=== PATIENT | female | born 1970 | race Caucasian/White ===

== ENCOUNTER 2020-09-24 18:19 | Emergency (ER) | payer SELFPAY ==
[2020-09-24] MEDS ORDERED: Ketorolac Tromethamine 30 MG/ML VIAL ONE (19:00)
[2020-09-24 19:31] LABS: #Lymphocytes 0.9 thou/uL (1.20-3.40); #Monocytes 0.3 thou/uL (0.11-0.59); #Neutrophils 1.5 thou/uL (1.40-6.50); %Basophils 1.5 % (0.0-1.0); %Eosinophils 0.9 % (0.0-10.0); %Lymphocytes 33.5 % (21.0-51.0); %Monocytes 10.2 % (0.0-10.0); %Neutrophils 53.9 % (42.0-75.0); Hemoglobin 14.2 g/dL (12.0-16.0); Mean Corpuscular HGB CONC 34.6 g/dL (32.0-36.0); Mean Corpuscular Hemoglobin 31.5 pg (27.0-31.0); Mean Corpuscular Volume 91.1 fL (78.0-98.0); Mean Platelet Volume 8.2 fL (7.4-10.4); Platelet Count 133 thou/uL (130-400); RBC Distribution Width 11.2 % (11.5-14.5); Red Blood Cell (RBC) Count 4.49 mill/uL (4.20-5.40); White Blood Cell (WBC) Count 2.8 thou/uL (4.8-10.8)
[2020-09-24 19:32] LABS: Bilirubin Negative (Negative); Blood, Urine Negative (Negative); Clarity Clear (Clear); Glucose, Urine (Dipstick) Greater than 1000 mg/dL (Negative); Ketone, Urine Negative (Negative); Leukocyte Negative Leu/uL (Negative); Nitrite Negative (Negative); Protein, Urine (Dipstick) Negative (Neg-Trace); Specific Gravity, Urine 1.013 (1.002-1.036); Urobilinogen Normal mg/dL (Less than 2); pH, Urine 5.5 (5.0-9.0)
[2020-09-24 19:49] LABS: ALT (SGPT) 25 U/L (8-55); AST (SGOT) 19 U/L (5-34); Albumin 3.9 g/dL (3.5-5.0); Alkaline Phosphatase 75 U/L (40-110); Anion Gap 16 mmol/L (10-20); BUN (Urea Nitrogen) 7 mg/dL (7.0-18.7); Bilirubin, Total 0.2 mg/dL (0.2-1.2); Calc. Creatinine Clearance 0 mL/min (70-130); Calcium 8.6 mg/dL (7.8-10.44); Carbon Dioxide 23 mmol/L (22-29); Chloride 100 mmol/L (98-107); Estimated GFR-MDRD 71; Globulin 3.2 g/dL (2.4-3.5); Glucose 363 mg/dL (70-105); Potassium 3.7 mmol/L (3.5-5.1); Protein, Total 7.1 g/dL (6.0-8.3); Sodium 135 mmol/L (136-145)
== END 2020-09-24 21:28 | disposition home or self-care (01) ==
LOC: ERS 18:19
DX: U07.1 COVID-19 (principal); M54.9 Dorsalgia, unspecified; E11.9 Type 2 diabetes mellitus without complications; E78.00 Pure hypercholesterolemia, unspecified; I10 Essential (primary) hypertension; E05.00 Thyrotoxicosis with diffuse goiter without thyrotoxic crisis or storm
CPT/HCPCS: 36416; 80053; 81003; 85025; 87086; 96374; J1885

== ENCOUNTER 2020-09-28 15:41 | Inpatient (IN) | payer SELFPAY ==
[2020-09-28 16:21] LABS: Bilirubin Negative (Negative); Blood, Urine Negative (Negative); Clarity Clear (Clear); Glucose, Urine (Dipstick) Greater than 1000 mg/dL (Negative); Ketone, Urine Trace mg/dL (Negative); Leukocyte Negative Leu/uL (Negative); Nitrite Negative (Negative); Protein, Urine (Dipstick) Negative (Neg-Trace); Specific Gravity, Urine 1.009 (1.002-1.036); Urobilinogen Normal mg/dL (Less than 2)
[2020-09-28 17:20] LABS: #Lymphocytes 1.1 thou/uL (1.20-3.40); #Monocytes 0.3 thou/uL (0.11-0.59); #Neutrophils 2.9 thou/uL (1.40-6.50); %Basophils 0.4 % (0.0-1.0); %Eosinophils 0.1 % (0.0-10.0); %Lymphocytes 26.3 % (21.0-51.0); %Monocytes 6.1 % (0.0-10.0); %Neutrophils 67.1 % (42.0-75.0); Hemoglobin 13.9 g/dL (12.0-16.0); Mean Corpuscular HGB CONC 32.2 g/dL (32.0-36.0); Mean Corpuscular Hemoglobin 29.1 pg (27.0-31.0); Mean Corpuscular Volume 90.5 fL (78.0-98.0); Mean Platelet Volume 8.4 fL (7.4-10.4); Platelet Count 153 thou/uL (130-400); RBC Distribution Width 11.1 % (11.5-14.5); Red Blood Cell (RBC) Count 4.79 mill/uL (4.20-5.40); White Blood Cell (WBC) Count 4.3 thou/uL (4.8-10.8)
--- NOTE | 2020-09-28 17:20 | RAD ---
PORTABLE CHEST: 09/28/20 HISTORY: Chest pain, COVID positive. COMPARISON: No recent comparison. FINDINGS: Hazy infiltrate in the peripheral right lower lung suggesting ground glass infiltrates. Probable subt le infiltrates in the left lower lung as well. Upper lungs appear clear. Heart and mediastinum unrema rkable. IMPRESSION: Evidence of hazy ground glass type infiltrates in the lower lung nelson suggesting COVID pneumonia. POS: [facility]
[2020-09-28 17:36] LABS: Anion Gap 14 mmol/L (10-20); BUN (Urea Nitrogen) 6 mg/dL (7.0-18.7); Calc. Creatinine Clearance 0 mL/min (70-130); Carbon Dioxide 27 mmol/L (22-29); Chloride 99 mmol/L (98-107); Estimated GFR-MDRD 82; Glucose 242 mg/dL (70-105); Lipase 52 U/L (8-78); Potassium 3.7 mmol/L (3.5-5.1); Sodium 136 mmol/L (136-145)
[2020-09-28] MEDS ORDERED: Ondansetron PF 4 MG/2 ML Vial ONE (17:51)
[2020-09-28] MEDS ORDERED: Dexamethasone 10 MG/ML VIAL ONE (17:55)
[2020-09-28] MEDS ORDERED: Azithromycin 500 MG in Sodium Chloride 0.9% 250 ML 250 ML IVPB SCH (18:15)
[2020-09-28 18:38] LABS: INR-International Normal Ratio 0.9; Prothrombin Time 11.8 sec (12.0-14.7)
[2020-09-28 18:41] LABS: PTT 19.7 sec (22.9-36.1)
--- NOTE | 2020-09-28 18:58 | PDOC.HHP ---
Hospitalist HPI - History of Present Illness flu-like symptoms History of Present Illness: PCP: Dr. Galeana The patient is a 50-year-old female with a past medical history significant for DM 2 ([id number]) and Graves' disease that presents to the emergency department for the above complaint. The patient reports being diagnosed with Covid 19 infection last which was approximately 6 days ago. The patient reports that she has had back pain, nausea with anorexia since her diagnosis. However, this morning her symptoms had worsened. She reports primarily lower back pain, sometimes worse on the left side, described as intermittent stabbing, exacerbated and relieved by nothing. She reports some associated nausea, denies vomiting. She went to an [facility], however, she waited for approximately 3 hours and decided to come to the emergency department for further evaluation. She has had intermittent diarrhea, denies any hematochezia/melena. She denies any dysuria or hematuria. She reports having intermittent fevers over the past week, however, has not had fever for the past 4 days. She reports nonproductive, intermittent cough. She reports intermittent dyspnea with exertion. She denies chest pain, heart palpitations or lightheadedness. She has a history of hyperlipidemia and DMII, denies any history of HTN or smoking. There is no swelling to her lower extremities. She denies any wheezing or hemoptysis. No history of DVT/PE. ED Course: VITAL SIGNS SatSep 28, 2020 15:42 IVETTE Nuno Dannette BP: 150/88, Pulse: 97, Resp: 19, Temp: 98.3 (Oral), Pain: 6, O2 sat: 95 on (Room Air), Time: 09/28/2020 15:42. VITAL SIGNS SatSep 28, 2020 16:05 IVETTE Boone Miranda BP: 129/76, Pulse: 86, Resp: 18, Pain: 6, O2 sat: 93 on (Room Air), Time: 09/28/2020 16:05 Medications: dexamethasone sodium phosphate injection 10 mg IV Push Acknowledged 17:46 09/28/2020 azithromycin intravenous 500 mg IV Piggy Back Acknowledged 17:46 09/28/2020 sodium chloride 0.9 % intravenous 1 L IV Fluid Infusion Acknowledged 17:25 09/28/2020 zofran 4mg IV once * IV Push Acknowledged 17:25 09/28/2020 Hospitalist ROS - Review of Systems All other systems reviewed; all pertinent +/- noted in HPI/Subj - Medication Medications: 1. Metformin 1000 mg p.o. twice daily 2. Lisinopril 10 mg p.o. daily. Allergies: NKDA Hospitalist History - Past Medical History Source: patient, RN notes reviewed Cardiac: reports: Hyperlipidemia Gastrointestinal: reports: GERD (Manages with OTC meds as needed) Endocrine: reports: Diabetes (Type II, [id number]), Hyperparathyroidism (Graves' disease, no home medications) - Past Surgical History Past Surgical History: reports: - Family History Family History: denies: cardiac disorder, cerebrovascular accident Other Family History: Noncontributory to this case - Social History Smoking Status: Never smoker Alcohol: reports: None Drugs: reports: none Living Situation: With Family Occupation: Works in construction Activity level: independent ambulation - Exam General Appearance: NAD, awake alert. negative: ill appearing Eye: anicteric sclera ENT: normocephalic atraumatic Neck: supple, symmetric Heart: RRR, no murmur, no gallops, no rubs, normal peripheral pulses Respiratory: CTAB, no wheezes, no rales, no ronchi, normal chest expansion, no tachypnea Gastrointestinal: soft, non-tender, non-distended, normal bowel sounds, no guarding, no rigidity Gastrointestinal - other findings: Negative Rovsing sign, negative Villalobos sign, no rebound tenderness Extremities: no cyanosis, no edema Neurological: no focal deficits Musculoskeletal: normal tone, normal strength Psychiatric: normal affect, A&O x 3 Hospitalist Results - Labs Result Diagrams: 09/28/20 17:13 09/28/20 17:13 Lab results: WBC 4.3 thou/uL (4.8-10.8) L 09/28/20 17:13 Hgb 13.9 g/dL (12.0-16.0) 09/28/20 17:13 Hct 43.3 % (36.0-47.0) 09/28/20 17:13 MCV 90.5 fL (78.0-98.0) 09/28/20 17:13 Plt Count 153 thou/uL (130-400) 09/28/20 17:13 Neutrophils % 67.1 % (42.0-75.0) 09/28/20 17:13 ESR Westergren 42 mm/hr (Less than 20) H 09/28/20 17:13 Sodium 136 mmol/L (136-145) 09/28/20 17:13 Potassium 3.7 mmol/L (3.5-5.1) 09/28/20 17:13 Chloride 99 mmol/L (98-107) 09/28/20 17:13 Carbon Dioxide 27 mmol/L (22-29) 09/28/20 17:13 BUN 6 mg/dL (7.0-18.7) L 09/28/20 17:13 Creatinine 0.75 mg/dL (0.6-1.1) 09/28/20 17:13 Glucose 242 mg/dL (70-105) H 09/28/20 17:13 Calcium 9.0 mg/dL (7.8-10.44) 09/28/20 17:13 Troponin I Less than 0.010 ng/mL (< 0.028) 09/28/20 17:13 C-Reactive Protein 2.26 mg/dL (= or < 0.5) H 09/28/20 17:13 Lipase 52 U/L (8-78) 09/28/20 17:13 Urine Ketones Trace mg/dL (Negative) A 09/28/20 16:10 Urine Blood Negative (Negative) 09/28/20 16:10 Urine Nitrite Negative (Negative) 09/28/20 16:10 Ur Leukocyte Esterase Negative Mary Kay/uL (Negative) 09/28/20 16:10 - EKG Interpretation EKG: Normal sinus rhythm - Radiology Interpretation Chest x-ray Status: report reviewed by me Additional Comment: IMPRESSION: Evidence of hazy ground glass type infiltrates in the lower lung nelson suggesting COVID pneumonia. Hospitalist H&P A/P - Problem (1) Pneumonia due to COVID-19 virus Code(s): U07.1 - COVID-19; J12.89 - OTHER VIRAL PNEUMONIA Status: Acute (2) DM2 (diabetes mellitus, type 2) Status: Chronic Qualifiers: Diabetes mellitus ad terminal makeup operator insulin use: without longterm use (3) Graves disease Code(s): E05.00 - THYROTOXICOSIS W DIFFUSE GOITER W/O THYROTOXIC CRISIS Status: Chronic (4) Hyperlipidemia Code(s): E78.5 - HYPERLIPIDEMIA, UNSPECIFIED Status: Chronic - Plan Plan: 50/F with PMH Graves' disease and DM2 presents for worsening Symptoms of COVID-19. Admit to medical floor, inpatient status. Expected length of stay greater than 2 midnights. Presented hypertensive, NL HR, RR, SPO2, afebrile. EKG normal sinus rhythm, troponin negative. CXR consistent with Covid pneumonia. WBC 4.3, CRP 2.26, ESR 42 PT 11.8, INR 0.9 UA trace ketones, glucose Blood cultures pending #Pneumonia due to COVID-19 virus Continue dexamethasone. Start Lovenox. Trend acute phase reactants. Isolation precautions. Start vitamin C and zinc. Discontinue azithromycin for now. #DM2 Hold home dose Metformin for now. Start moderate ISS. AC/at bedtime checks. Restart home dose lisinopril when reconciled by nursing. #Graves' disease Order TSH. Takes no home medications for this. #Hyperlipidemia Takes no home medications. SCDs for DVT prophylaxis. Lovenox for DVT prophylaxis. Pepcid for GI prophylaxis. Full code. Discussed the case with Dr. Lopez.
[2020-09-28] MEDS ORDERED: Ondansetron PF 4 MG/2 ML Vial IVP PRN (19:27)
[2020-09-28] MEDS ORDERED: Calcium Carbonate 500 MG ChewTAB PO PRN (19:27)
[2020-09-28] MEDS ORDERED: Ondansetron ODT 4 MG TAB PO PRN (19:27)
[2020-09-28] MEDS ORDERED: Acetaminophen 325 MG TAB PO PRN (19:27)
[2020-09-28] MEDS ORDERED: HYDROcodone/Acetaminophen 5/325 mg Tablet PO PRN ×2 (19:27)
[2020-09-28] MEDS ORDERED: Senokot S 8.6-50 MG TAB PO PRN (19:27)
[2020-09-28] MEDS ORDERED: Guaifenesin DM 100-10/5 ML UDCUP PO PRN (19:27)
[2020-09-28] MEDS ORDERED: Enoxaparin Sodium 40 MG/0.4 ML SYRINGE SC SCH (19:30)
[2020-09-28] MEDS ORDERED: Dextrose 5% in Water 1,000 ML IV PRN (19:30)
[2020-09-28] MEDS ORDERED: Dextrose 50% Abboject 50 ML SYRINGE SLOW IVP PRN (19:30)
[2020-09-28] MEDS ORDERED: Famotidine 20 MG TAB PO SCH (21:00)
[2020-09-28 22:34] VITALS: BMI 33.2
[2020-09-28 22:56] LABS: Troponin I 0.017 ng/mL (< 0.028)
[2020-09-28] MEDS: Famotidine 20 MG TAB PO SCH (23:02)
[2020-09-28] MEDS: HumaLOG 300 UNITS/3 ML VIAL SC PRN (23:07)
[2020-09-29 02:11] LABS: Troponin I Less than 0.010 ng/mL (< 0.028)
[2020-09-29] MEDS: HumaLOG 300 UNITS/3 ML VIAL SC PRN ×4 (04:38→21:19)
[2020-09-29 06:13] LABS: #Monocytes 0.1 thou/uL (0.11-0.59); #Neutrophils 2.7 thou/uL (1.40-6.50); %Basophils 0.3 % (0.0-1.0); %Eosinophils 0.1 % (0.0-10.0); %Lymphocytes 25.6 % (21.0-51.0); %Monocytes 3.1 % (0.0-10.0); Hemoglobin 13.4 g/dL (12.0-16.0); Mean Corpuscular HGB CONC 34.3 g/dL (32.0-36.0); Mean Corpuscular Hemoglobin 31.7 pg (27.0-31.0); Mean Corpuscular Volume 92.4 fL (78.0-98.0); Mean Platelet Volume 8.6 fL (7.4-10.4); Platelet Count 159 thou/uL (130-400); RBC Distribution Width 11.1 % (11.5-14.5); Red Blood Cell (RBC) Count 4.22 mill/uL (4.20-5.40); White Blood Cell (WBC) Count 3.8 thou/uL (4.8-10.8)
[2020-09-29 06:34] LABS: Anion Gap 14 mmol/L (10-20); BUN (Urea Nitrogen) 9 mg/dL (7.0-18.7); Calc. Creatinine Clearance 111 mL/min (70-130); Calcium 8.7 mg/dL (7.8-10.44); Carbon Dioxide 25 mmol/L (22-29); Chloride 103 mmol/L (98-107); Estimated GFR-MDRD 79; Glucose 304 mg/dL (70-105); Potassium 4.2 mmol/L (3.5-5.1); Sodium 138 mmol/L (136-145)
[2020-09-29 06:54] LABS: Free T4 (Free Thyroxine) 1.04 ng/dL (0.70-1.48)
[2020-09-29] MEDS ORDERED: Insulin Glargine 10 UNITS in Pre-Filled Syringe 1 EACH SC SCH (09:00)
[2020-09-29] MEDS ORDERED: FLU VACC QS2020-21(6MOS UP)/PF 60 MCG/0.5 ML SYRINGE IM ONE (09:00)
[2020-09-29] MEDS: Ascorbic Acid 500 mg Chewable Tablet PO SCH (09:05)
[2020-09-29] MEDS: Dexamethasone 4 mg/ml Vial SLOW IVP SCH (09:05)
[2020-09-29] MEDS: Zinc Sulfate 220 MG CAP PO SCH (09:05)
[2020-09-29] MEDS: Enoxaparin Sodium 40 MG/0.4 ML SYRINGE SC SCH (09:05)
[2020-09-29] MEDS: Famotidine 20 MG TAB PO SCH ×2 (09:05→20:51)
[2020-09-29 09:12] LABS: SARS-CoV-2 MS2 Positive; SARS-CoV-2 N Gene Positive; SARS-CoV-2 S Gene Positive; SARS-CoV-2 by NAA DETECTED (NotDetected); SARS-CoV-2 orf1ab Positive
--- NOTE | 2020-09-29 12:49 | PDOC.HOSPP ---
- Subjective Encounter Date: 09/29/20 Encounter Time: 08:15 Subjective: has coughing spells, no sputum has been sick for around 7 days now, is also getting tested with symptoms now - Objective Vital Signs & Weight: Vital Signs (12 hours) Temp Pulse Resp BP Pulse Ox 09/29/20 12:20 97.8 F 72 14 120/74 95 09/29/20 08:00 98.3 F 58 L 16 117/76 94 L 09/29/20 04:00 98.2 F 65 18 98/61 95 Weight Admit Weight 175 lb 14.72 oz Weight 175 lb 14.862 oz I&O: 09/28/20 09/29/20 09/30/20 06:59 06:59 06:59 Intake Total 350 Balance 350 Result Diagrams: 09/29/20 05:46 09/29/20 05:46 Additional Labs: Accuchecks 09/29/20 09/29/20 09/28/20 12:14 04:34 23:06 POC Glucose 220 H 257 H 286 H Hospitalist ROS - Medication Medications: Active Medications Generic Name Dose Route Start Last Admin Trade Name Freq PRN Reason Stop Dose Admin Ascorbic Acid 1,000 mg 09/29/20 09:00 09/29/20 09:05 Ascorbic Acid 500 Mg Chewable Tablet PO 1,000 mg DAILY JOSE F Administration Dexamethasone 6 mg 09/29/20 09:00 09/29/20 09:05 Dexamethasone 4 Mg/Ml Vial SLOW IVP 6 mg DAILY JOSE F Administration Enoxaparin Sodium 40 mg 09/29/20 09:00 09/29/20 09:05 Enoxaparin Sodium 40 Mg/0.4 Ml Syringe SC 40 mg 0900 JOSE F Administration Famotidine 20 mg 09/28/20 21:00 09/29/20 09:05 Famotidine 20 Mg Tab PO 20 mg BID JOSE F Administration Insulin Glargine 10 units/ 0.1 mls @ 0 mls/hr 09/29/20 09:00 09/29/20 09:05 Miscellaneous Medication SC 0.1 mls BID JOSE F Administration Insulin Human Lispro 0 units 09/28/20 19:30 09/29/20 04:38 Humalog 300 Units/3 Ml Vial SC 6 unit .MODERATE SLIDING SC PRN Administration Moderate Correctional Scale Insulin Human Lispro 0 units 09/28/20 19:30 09/28/20 23:07 Humalog 300 Units/3 Ml Vial SC 3 unit .BEDTIME SLIDING SC PRN Administration Bedtime Correctional Scale Zinc Sulfate 220 mg 09/29/20 09:00 09/29/20 09:05 Zinc Sulfate 220 Mg Cap PO 220 mg DAILY JOSE F Administration - Exam General Appearance: awake alert Eye: PERRL, anicteric sclera ENT: no oropharyngeal lesions, moist mucosa Neck: supple, no JVD Heart: RRR, no murmur Respiratory: no wheezes, no rales Gastrointestinal: soft, non-tender, non-distended, normal bowel sounds Extremities: no cyanosis, no edema Neurological: cranial nerve grossly intact, no focal deficits Psychiatric: normal affect, A&O x 3 Hosp A/P (1) Pneumonia due to COVID-19 virus Code(s): U07.1 - COVID-19; J12.89 - OTHER VIRAL PNEUMONIA Status: Acute (2) DM2 (diabetes mellitus, type 2) Status: Chronic Qualifiers: Diabetes mellitus [facility] insulin use: without [facility] use (3) Graves disease Code(s): E05.00 - THYROTOXICOSIS W DIFFUSE GOITER W/O THYROTOXIC CRISIS Status: Chronic (4) Hyperlipidemia Code(s): E78.5 - HYPERLIPIDEMIA, UNSPECIFIED Status: Chronic (5) Obesity (BMI 30.0-34.9) Code(s): E66.9 - OBESITY, UNSPECIFIED Status: Acute - Plan is on room air now, has b/l infiltrates on cxr, at risk for progression with risk factors (dm, obesity) might be a candidate for remdesivir, continue steroids continue metformin, alb inhaler hemostable to mobilize and be active in the room, to lay on sides or on her belly when sleeping/or on bed
[2020-09-29] MEDS ORDERED: REMDESIVIR (EUA) 200 MG in Sodium Chloride 0.9% 250 ML 210 ML IV SCH (15:15)
[2020-09-29] MEDS ORDERED: metFORMIN 500 MG TAB PO SCH (21:00)
[2020-09-29] MEDS ORDERED: Lisinopril 20 MG TAB PO SCH (21:00)
--- NOTE | 2020-09-30 00:50 | CON ---
DATE OF CONSULTATION: 09/29/2020 REASON FOR CONSULTATION: Coronavirus disease 2019 pneumonia. HISTORY OF PRESENT ILLNESS: A 50-year-old, history of Graves disease, type 2 diabetes, hyperlipidemia, and hypertension, who developed abdominal cramps and diarrhea, fever about 10-11 days ago. She tested positive on , 7 days ago, came to the emergency room, was given IV fluids and released and then she came back because she was having abdominal cramps, so she was not really a readmitted because of respiratory symptoms. She has been saturating well in the upper 90s since admission. She is on Decadron and is feeling good now, asking if she could go home tomorrow. No headaches. A little bit of cough. No chest pain. No dyspnea. Abdominal cramps have improved. No genitourinary symptoms. No joint symptoms or neurological symptoms. MEDICAL HISTORY: Graves disease, diabetes type 2, hyperlipidemia, hypertension. SOCIAL HISTORY: Never smoker. No alcoholic beverage use. FAMILY HISTORY: has the same diagnosis and is still home at this point. ALLERGIES: NONE. CURRENT MEDS: 1. Vitamin C. 2. Tums. 3. Decadron. 4. Lovenox. 5. Hydrocodone. 6. Insulin. 7. Glucophage. 8. Remdesivir was not started. PHYSICAL EXAMINATION: VITAL SIGNS: Essentially normal. She is saturating 97 room air right now, pulse 72, breathing 16 times a minute. Appears in no distress. Able to speak in full sentences. SKIN EXAM: Normal. No lymphadenopathy. HEENT EXAMINATION: Normal. LUNGS: Clear to auscultation. HEART: S1-S2, regular rate. ABDOMEN: Soft, not distended or tender. No ascites. No bladder distention. EXTREMITIES: No joint inflammatory activity. No edema. Pulses 1+ in dorsalis pedis. She moves all extremities equally. NEUROLOGICAL: Cognitive function appears to be intact. LABORATORY DATA: White cell count 3.8, hemoglobin 13.4, platelets 159 with INR 0.9. D-dimer 0.38. Sodium 138. Creatinine 0.78. Thyroid function normal. CRP was 2.26 and the ferritin 386. Urinalysis, glycosuria, but otherwise normal. SARS-CoV-2 PCR detected. Mild infiltrates here and there. ASSESSMENT: Graves disease, type 2 diabetes, hypertension, with some [id number] coronavirus disease 2019. She is not eligible for Remdesivir and I think she is not going to need it any ways and probably can be discharged tomorrow off Decadron or could extend the Decadron for another of 3 or 4 days or so. I discussed with her that sometimes SARS-CoV-2 infection may result in delayed exacerbation of the inflammatory process. She is at her 11th day, so there is still some space for her to display deterioration, but being her a woman and doing so well at this stage of the game, I think she is probably going to do well. Job ID: [id number] [facility]
[2020-09-30] MEDS: HumaLOG 300 UNITS/3 ML VIAL SC PRN (05:57)
[2020-09-30] MEDS ORDERED: metFORMIN 500 MG TAB PO SCH (08:00)
[2020-09-30] MEDS: Ascorbic Acid 500 mg Chewable Tablet PO SCH (09:09)
[2020-09-30] MEDS: Enoxaparin Sodium 40 MG/0.4 ML SYRINGE SC SCH (09:10)
[2020-09-30] MEDS: Zinc Sulfate 220 MG CAP PO SCH (09:10)
[2020-09-30] MEDS: Dexamethasone 4 mg/ml Vial SLOW IVP SCH (09:10)
[2020-09-30] MEDS: Famotidine 20 MG TAB PO SCH (09:10)
[2020-09-30 11:01] VITALS: BP 104/67; TEMP 98.5
[2020-09-30] MEDS ORDERED: REMDESIVIR (EUA) 100 MG in Sodium Chloride 0.9% 250 ML 230 ML IV SCH (15:15)
--- NOTE | 2020-10-01 15:34 | EKG ---
Test Reason : Blood Pressure : / mmHG Vent. Rate : 092 BPM Atrial Rate : 092 BPM P-R Int : 154 ms QRS Dur : 102 ms QT Int : 358 ms P-R-T Axes : 047 -07 040 degrees QTc Int : 442 ms Normal sinus rhythm Left atrial enlargement Inferior infarct , age undetermined Anterior infarct , age undetermined Abnormal ECG Confirmed by JACKSON DWYER, AARON Barraza ([id number]), digital editor TAIWO PERKINS ([id number]) on 10/01/2020 3:33:47 PM Referred By: Confirmed By:AARON PAZ MD
--- NOTE | 2020-10-01 17:39 | DIS ---
DATE OF ADMISSION: 09/28/2020 DATE OF DISCHARGE: 09/30/2020 DISCHARGE DISPOSITION: To home. PRIMARY DISCHARGE DIAGNOSES: COVID-19 pneumonia, diabetes mellitus type 2, history of Graves' disease, dyslipidemia, obesity with BMI of 33. PROCEDURES DONE DURING HOSPITALIZATION: Chest x-ray done showed ground-glass type infiltrate in lower lung nelson suggestive of COVID pneumonia. Stool for C difficile negative. Stool for Campylobacter antigen and Shiga toxins were negative. H and H 13 and 39, platelet count 159. Sedimentation rate was 42. D-dimer 0.3. CRP was 2.26. Free T4 1.0. Free T3 2.1. COVID-19 PCR was positive on 09/28/2020. DISCHARGE PLAN: The patient to follow up with her primary care physician, Dr. Galeana in 3 days. DISCHARGE MEDICATIONS: 1. Dexamethasone 6 mg p.o. daily for another 6 days. 2. Albuterol inhaler q.6 hourly p.r.n. 3. Metformin 1000 mg p.o. at bedtime. 4. Lisinopril 10 mg p.o. at bedtime. ALLERGIES: NO KNOWN DRUG ALLERGIES. INPATIENT CONSULT: Dr. Saucedo for Infectious Disease. BRIEF COURSE DURING HOSPITALIZATION: The patient initially came in with complaints of flu-like symptoms. She was diagnosed with COVID-19 infection last approximately 6 days prior to arrival. She has had another COVID PCR done here which was positive. In view of multiple risk factors, the patient was admitted to medical floor. A chest x-ray revealed ground-glass bilateral infiltrates. She had history of diabetes and a BMI of 33. There was risk for possible progression hence was closely monitored. The patient did not require any supplemental oxygen and was saturating well. In view of this, she is being discharged home on steroids for another 6 days. She is hemodynamically stable, tolerating oral solid diet. She is ambulating well in the room. Please note, I have seen and examined the patient on the day of discharge. Job ID: [id number]
== END 2020-09-30 12:44 | disposition home or self-care (01) | DRG 177 ==
LOC: ERS 15:41 → T4-A 18:22
PROVIDERS: ADMIT Internal Medicine; ATTEND Internal Medicine
PROC: 8E0ZXY6 Isolation (ICD-10-PCS; 2020-09-28)
PROC: XW033E5 Introduction of Remdesivir Anti-infective into Peripheral Vein, Percutaneous Approach, New Technology Group 5 (ICD-10-PCS; principal; 2020-09-29)
DX: U07.1 COVID-19 (principal); J12.89 Other viral pneumonia; E05.00 Thyrotoxicosis with diffuse goiter without thyrotoxic crisis or storm; E78.5 Hyperlipidemia, unspecified; E11.9 Type 2 diabetes mellitus without complications; E66.9 Obesity, unspecified; E78.00 Pure hypercholesterolemia, unspecified; K21.9 Gastro-esophageal reflux disease without esophagitis; I10 Essential (primary) hypertension; E21.3 Hyperparathyroidism, unspecified; Z28.21 Immunization not carried out because of patient refusal; Z68.33 Body mass index [BMI] 33.0-33.9, adult; Z79.899 Other long term (current) drug therapy; Z79.84 Long term (current) use of oral hypoglycemic drugs
CPT/HCPCS: 36415; 36416; 71045; 80048; 81003; 82728; 83690; 84439; 84443; 84481; 84484; 85025; 85379; 85610; 85652; 85730; 86140; 87040; 87045; 87046; 87324; 87427; 87449; 87635; 93005; 94760; 96365; 96375; J1100; J1650; J1815; J2405; U0003

== ENCOUNTER 2024-08-14 08:22 | Emergency (ER) | payer BC ==
[2024-08-14] MEDS ORDERED: Lorazepam 2 MG/ML VIAL ONE (08:51)
[2024-08-14 08:59] LABS: #Basophils 0.04 10x3/uL (0.0-0.2); %Basophils 0.5 % (0.0-1.0); %Eosinophils 2.4 % (0.0-10.0); %Lymphocytes 27.7 % (21.0-51.0); %Monocytes 7.2 % (0.0-10.0); %Neutrophils 61.9 % (42.0-75.0); Hematocrit 42.3 % (36.0-47.0); Hemoglobin 14.6 g/dL (12.0-16.0); Mean Corpuscular HGB CONC 34.5 g/dL (32.0-36.0); Mean Corpuscular Hemoglobin 31.7 pg (27.0-31.0); Mean Corpuscular Volume 91.8 fL (78.0-98.0); Mean Platelet Volume 10.1 fL (7.4-10.4); Platelet Count 224 10x3/uL (130-400); RBC Distribution Width 11.9 % (11.5-14.5); Red Blood Cell (RBC) Count 4.61 mill/uL (4.20-5.40)
[2024-08-14 09:20] LABS: Troponin I Less than 0.010 ng/mL (< 0.028)
[2024-08-14] MEDS ORDERED: Aspirin Chewable 81 MG TAB ONE (09:33)
[2024-08-14 10:41] LABS: ALT (SGPT) 17 U/L (8-55); AST (SGOT) 15 U/L (5-34); Alkaline Phosphatase 50 U/L (40-110); Anion Gap 11 mmol/L (10-20); BUN (Urea Nitrogen) 13 mg/dL (9.8-20.1); Bilirubin, Total 0.5 mg/dL (0.2-1.2); Calc. Creatinine Clearance 0 mL/min (70-130); Calcium 9.6 mg/dL (7.8-10.44); Carbon Dioxide 25 mmol/L (22-29); Chloride 105 mmol/L (98-107); Estimated GFR 96; Glucose 137 mg/dL (70-105); Potassium 4.1 mmol/L (3.5-5.1); Sodium 137 mmol/L (136-145)
== END 2024-08-14 09:57 | disposition home or self-care (01) ==
LOC: ERS 08:22
DX: F41.9 Anxiety disorder, unspecified (principal); F32.A Depression, unspecified; E11.9 Type 2 diabetes mellitus without complications
CPT/HCPCS: 36415; 36416; 70450; 80053; 84484; 85025; 96374; J2060

== ENCOUNTER 2024-09-19 06:08 | Inpatient (IN) | payer BC ==
[2024-09-19 07:01] LABS: #Basophils 0.04 10x3/uL (0.0-0.2); #Eosinophils Less than 0.03 10x3/uL (0.0-0.7); %Basophils 0.4 % (0.0-1.0); %Lymphocytes 6.6 % (21.0-51.0); %Monocytes 8.8 % (0.0-10.0); %Neutrophils 83.8 % (42.0-75.0); Hematocrit 43.8 % (36.0-47.0); Hemoglobin 14.8 g/dL (12.0-16.0); Mean Corpuscular HGB CONC 33.8 g/dL (32.0-36.0); Mean Corpuscular Hemoglobin 30.8 pg (27.0-31.0); Mean Corpuscular Volume 91.1 fL (78.0-98.0); Mean Platelet Volume 10.1 fL (7.4-10.4); Platelet Count 128 10x3/uL (130-400); RBC Distribution Width 11.9 % (11.5-14.5); Red Blood Cell (RBC) Count 4.81 mill/uL (4.20-5.40)
[2024-09-19 07:01] LABS: Troponin I Less than 0.010 ng/mL (< 0.028)
[2024-09-19 07:25] LABS: ALT (SGPT) 47 U/L (8-55); AST (SGOT) 46 U/L (5-34); Alkaline Phosphatase 58 U/L (40-110); Anion Gap 18 mmol/L (10-20); BUN (Urea Nitrogen) 10 mg/dL (9.8-20.1); Bilirubin, Total 0.5 mg/dL (0.2-1.2); Calc. Creatinine Clearance 0 mL/min (70-130); Calcium 9.7 mg/dL (7.8-10.44); Carbon Dioxide 23 mmol/L (22-29); Chloride 102 mmol/L (98-107); Estimated GFR 84; Glucose 174 mg/dL (70-105); Lipase 29 U/L (8-78); Potassium 3.8 mmol/L (3.5-5.1); Sodium 139 mmol/L (136-145)
[2024-09-19 07:58] LABS: Bacteria/HPF None Seen HPF (None Seen); Bilirubin Negative (Negative); Blood, Urine Negative (Negative); CAUTI Indications for Culture Dysuria,urgency,freq; Clarity Clear (Clear); Glucose, Urine (Dipstick) Greater than 1000 mg/dL (Negative); Ketone, Urine 60 mg/dL (Negative); Leukocyte Negative Leu/uL (Negative); Nitrite Negative (Negative); Protein, Urine (Dipstick) Negative (Neg-Trace); RBC/HPF 0-3 HPF (0-3); Specific Gravity, Urine 1.042 (1.002-1.036); Squamous Epithelial 0-3 HPF (0-3); Urobilinogen Normal mg/dL (Less than 2); WBC/HPF 0-3 HPF (0-3); pH, Urine 5.5 (5.0-9.0)
[2024-09-19 07:59] LABS: Urine Culture Reflex No No
[2024-09-19] MEDS ORDERED: Famotidine/PF 20 mg/2ml Vial ONE (08:22)
[2024-09-19] MEDS ORDERED: Calcium Carbonate 500 MG ChewTAB PO PRN (09:23)
[2024-09-19] MEDS ORDERED: Senokot S 8.6-50 MG TAB PO PRN (09:23)
[2024-09-19 09:33] LABS: Lactic Acid 1.59 mmol/L (0.5-2.2)
[2024-09-19 09:45] LABS: Troponin I Less than 0.010 ng/mL (< 0.028)
[2024-09-19] MEDS ORDERED: Magnesium 2 GM/50 ML BAG (IN WATER) ONE (10:09)
[2024-09-19] MEDS ORDERED: Dicyclomine 20 MG/2 ML VIAL ONE (10:09)
[2024-09-19] MEDS ORDERED: Aspirin Chewable 81 MG TAB ONE (10:09)
[2024-09-19] MEDS ORDERED: Glucagon 1 MG/ML KIT IM PRN (10:14)
[2024-09-19] MEDS ORDERED: Dextrose 5% in Water 1,000 ML IV PRN (10:14)
[2024-09-19] MEDS ORDERED: Dextrose 50% Abboject 50 ML SYRINGE SLOW IVP PRN (10:14)
[2024-09-19] MEDS ORDERED: Iopamidol-370 76% 500 ML MDV (1 ML CHARGE) ONE (11:20)
[2024-09-19] MEDS: Sodium Chloride 0.9% 1,000 ML IV SCH (11:28)
[2024-09-19 15:15] VITALS: BMI 28.3
[2024-09-19 15:27] LABS: Troponin I Less than 0.010 ng/mL (< 0.028)
[2024-09-19] MEDS: Acetaminophen/Codeine 30-300mg Tablet PO PRN (17:09)
[2024-09-19] MEDS: Atorvastatin Calcium 20 MG TAB PO SCH (20:16)
[2024-09-19] MEDS: Famotidine 20 MG TAB PO SCH (20:17)
[2024-09-19] MEDS: Acetaminophen 500 MG TAB PO PRN (20:17)
[2024-09-20 04:16] LABS: #Basophils 0.04 10x3/uL (0.0-0.2); #Eosinophils Less than 0.03 10x3/uL (0.0-0.7); %Basophils 0.6 % (0.0-1.0); %Eosinophils 0.3 % (0.0-10.0); %Lymphocytes 12.3 % (21.0-51.0); %Monocytes 9.9 % (0.0-10.0); %Neutrophils 76.6 % (42.0-75.0); Hematocrit 42.1 % (36.0-47.0); Hemoglobin 14.1 g/dL (12.0-16.0); Mean Corpuscular HGB CONC 33.5 g/dL (32.0-36.0); Mean Corpuscular Hemoglobin 30.8 pg (27.0-31.0); Mean Corpuscular Volume 91.9 fL (78.0-98.0); Mean Platelet Volume 10.6 fL (7.4-10.4); Platelet Count 107 10x3/uL (130-400); RBC Distribution Width 11.7 % (11.5-14.5); Red Blood Cell (RBC) Count 4.58 mill/uL (4.20-5.40)
[2024-09-20 04:21] LABS: ALT (SGPT) 46 U/L (8-55); AST (SGOT) 44 U/L (5-34); Albumin 3.5 g/dL (3.5-5.0); Alkaline Phosphatase 51 U/L (40-110); Anion Gap 17 mmol/L (10-20); BUN (Urea Nitrogen) 11 mg/dL (9.8-20.1); Bilirubin, Total 0.4 mg/dL (0.2-1.2); Calc. Creatinine Clearance 95 mL/min (70-130); Calcium 8.9 mg/dL (7.8-10.44); Carbon Dioxide 19 mmol/L (22-29); Chloride 104 mmol/L (98-107); Estimated GFR 97; Globulin 3.5 g/dL (2.4-3.5); Glucose 134 mg/dL (70-105); Sodium 136 mmol/L (136-145)
[2024-09-20 04:56] LABS: HIV (1/2) Antibody/Antigen NONREACTIVE (NonReactive); HIV 1/2 INDEX 0.04 S/CO (<1.00); Thyroid Stimulating Hormone 0.2389 uIU/mL (0.35-4.94)
[2024-09-20] MEDS: Enoxaparin 40 MG (0.4 mL) SYRINGE SC SCH (09:35)
[2024-09-20] MEDS: Lisinopril 10 MG TAB PO SCH (09:35)
[2024-09-20] MEDS: Sodium Chloride 0.9% 1,000 ML IV SCH (09:43)
[2024-09-20] MEDS ORDERED: Regadenoson 0.4 MG/5 ML SYRINGE ONE (11:00)
[2024-09-20] MEDS: Lidocaine 4% Patch TD SCH ×2 (13:03→13:08)
[2024-09-20] MEDS: Insulin Lispro 100 UNIT/ML 10 ML VIAL SC PRN (17:14)
[2024-09-21] MEDS: Transdermal Patch Removal TOP SCH (00:30)
[2024-09-21 04:53] LABS: Anion Gap 14 mmol/L (10-20); BUN (Urea Nitrogen) 11 mg/dL (9.8-20.1); Calc. Creatinine Clearance 119 mL/min (70-130); Calcium 8.4 mg/dL (7.8-10.44); Carbon Dioxide 22 mmol/L (22-29); Chloride 105 mmol/L (98-107); Estimated GFR 108; Glucose 130 mg/dL (70-105); Potassium 3.6 mmol/L (3.5-5.1); Sodium 137 mmol/L (136-145)
[2024-09-21 04:56] LABS: #Basophils 0.03 10x3/uL (0.0-0.2); %Basophils 0.7 % (0.0-1.0); %Eosinophils 2.3 % (0.0-10.0); %Lymphocytes 20.4 % (21.0-51.0); %Monocytes 16.2 % (0.0-10.0); %Neutrophils 60.2 % (42.0-75.0); Hematocrit 37.1 % (36.0-47.0); Hemoglobin 12.5 g/dL (12.0-16.0); Mean Corpuscular HGB CONC 33.7 g/dL (32.0-36.0); Mean Corpuscular Hemoglobin 30.8 pg (27.0-31.0); Mean Corpuscular Volume 91.4 fL (78.0-98.0); Mean Platelet Volume 10.3 fL (7.4-10.4); Platelet Count 117 10x3/uL (130-400); RBC Distribution Width 11.8 % (11.5-14.5); Red Blood Cell (RBC) Count 4.06 mill/uL (4.20-5.40)
[2024-09-21 05:20] LABS: Free T4 (Free Thyroxine) 0.86 ng/dL (0.70-1.48)
[2024-09-22 04:41] LABS: Hematocrit 35.6 % (36.0-47.0); Hemoglobin 12.2 g/dL (12.0-16.0); Mean Corpuscular HGB CONC 34.3 g/dL (32.0-36.0); Mean Corpuscular Hemoglobin 30.7 pg (27.0-31.0); Mean Corpuscular Volume 89.7 fL (78.0-98.0); Mean Platelet Volume 10.3 fL (7.4-10.4); Platelet Count 117 10x3/uL (130-400); RBC Distribution Width 11.5 % (11.5-14.5); Red Blood Cell (RBC) Count 3.97 mill/uL (4.20-5.40)
[2024-09-22 04:46] LABS: ALT (SGPT) 53 U/L (8-55); AST (SGOT) 46 U/L (5-34); Alkaline Phosphatase 54 U/L (40-110); Anion Gap 12 mmol/L (10-20); BUN (Urea Nitrogen) 7 mg/dL (9.8-20.1); Bilirubin, Total 0.3 mg/dL (0.2-1.2); Calc. Creatinine Clearance 97 mL/min (70-130); Calcium 8.6 mg/dL (7.8-10.44); Carbon Dioxide 26 mmol/L (22-29); Chloride 104 mmol/L (98-107); Estimated GFR 99; Globulin 3.1 g/dL (2.4-3.5); Glucose 141 mg/dL (70-105); Potassium 3.5 mmol/L (3.5-5.1); Protein, Total 6.1 g/dL (6.0-8.3); Sodium 138 mmol/L (136-145)
[2024-09-22 05:52] LABS: Band 22 % (5-11); Eosinophils 5 % (0-10); Lymphocytes 26 % (21-51); Monocytes 11 % (0-10); Neutrophil 34 % (42-75); Platelet Adequacy Comment Platelets Decreased; Polychromasia SLIGHT = 2-3 cells HPF (0-2); Smudge Cells 7.9 %
[2024-09-22 11:55] VITALS: BP 108/68; TEMP 98
== END 2024-09-22 13:40 | disposition home or self-care (01) | DRG 312 ==
LOC: ERS 06:08 → ERHOLD 08:48 → 2SE 15:02 → OBSVTOIN 09-20 11:41
PROVIDERS: ADMIT Internal Medicine; ATTEND Internal Medicine
PROC: 4A00X4Z Measurement of Central Nervous Electrical Activity, External Approach (ICD-10-PCS; principal; 2024-09-21)
DX: R55 Syncope and collapse (principal); E86.9 Volume depletion, unspecified; E11.9 Type 2 diabetes mellitus without complications; E78.5 Hyperlipidemia, unspecified; E03.9 Hypothyroidism, unspecified; K21.9 Gastro-esophageal reflux disease without esophagitis; E66.9 Obesity, unspecified; E05.00 Thyrotoxicosis with diffuse goiter without thyrotoxic crisis or storm; Z68.28 Body mass index [BMI] 28.0-28.9, adult; Z98.890 Other specified postprocedural states
CPT/HCPCS: 36415; 36416; 70450; 71045; 71275; 72125; 74177; 78452; 80048; 80053; 81001; 83605; 83690; 83735; 84145; 84439; 84443; 84481; 84484; 85025; 87040; 87389; 87400; 87426; 87633; 93005; 93017; 93306; 95700; 95711; 95957; 96372; 96374; 96375; A9500; G0378; J1650; J1815; J2785; J3475; J3490; J7030; Q9967